=== PATIENT | male | born 1955 | race Caucasian/White ===

== ENCOUNTER 2024-09-16 15:57 | Inpatient (IN) | payer OTHER, SELFPAY ==
[2024-09-16] VITALS (18 sets, daily range): BP systolic 101–139; BP diastolic 62–90; BMI 25.1
[2024-09-16 10:21] LABS: % Basophils 0.8 % (0-2); % Eosinophils 3.1 % (0-6); % Immature Granulocytes 0.3 % (0-0.5); % Lymphocytes 24.5 % (20.5-51.1); % Monocytes 9.2 % (1.7-9.3); % Neutrophils 62.1 % (42.2-75.2); Absolute Basophils 0.1 10^3/uL (0-0.2); Absolute Eosinophils 0.3 10^3/uL (0-0.7); Absolute Lymphocytes 2.5 10^3/uL (1.2-3.4); Absolute Monocytes 0.9 10^3/uL (0.1-0.6); Absolute Neutrophils 6.3 10^3/uL (1.4-6.5); Hematocrit 41.1 % (39.0-52.0); Hemoglobin 13.9 g/dL (13.0-18.0); Mean Corp Hgb Conc. 33.8 g/dL (33.0-37.0); Mean Corpuscular Hgb 30.9 pg (27.0-31.0); Mean Corpuscular Volume 91.3 fL (80.0-94.0); Mean Platelet Volume 9.8 fL (7.4-10.4); Nucleated Red Blood Cells % 0 % (-); Platelet Count 265 10^3/uL (130-400); Red Cell Dist. Width 12.8 % (11.5-14.5); White Blood Cell Count 10.1 10^3/uL (4.8-10.8)
[2024-09-16 10:36] LABS: ALT (SGPT) 19 U/L (0-50); AST (SGOT) 25 U/L (17-59); Albumin 4.2 g/dl (3.5-5.0); Alkaline Phosphatase 59 U/L (38-126); Blood Urea Nitrogen 20 mg/dl (9-20); Calcium 9.1 mg/dl (8.4-10.2); Carbon Dioxide 23 mmol/L (22-30); Chloride 102 mmol/L (98-107); Glucose 151 mg/dl (70-99); Potassium 4.2 mmol/L (3.5-5.1); Sodium 135 mmol/L (135-145); Total Bilirubin 0.7 mg/dl (0.2-1.3); eGFR > 60.00
[2024-09-16 10:46] LABS: Troponin I 0.013 ng/ml
--- NOTE | 2024-09-16 11:04 | ED.GENMED ---
History of Present Illness
General
Chief Complaint: Chest Pain
Source: patient and spouse
Exam Limitations: none
Time Seen by Provider: 09/16/24 11:04
History of Present Illness
History of Present Illness:
68-year-old male. Chest pain started in the middle the night. Unsure if it woke him. Then was able to go back to sleep after 30 minutes. Recurred again in the morning and waxed and waned. Denies shortness of breath. Some minimal radiation to
the left neck. No diaphoresis. No exertional component.
Past History
Past History
ED Past Medical History: None
ED Past Surgical History: None
Social History
Tobacco: Non-smoker
Alcohol: None
Drug: None
Living: with family
Review of Systems
Review of Systems
All Other Systems: Not applicable
Constitutional: Denies fever or chills
Respiratory: Reports no symptoms
ABD/GI: Reports no symptoms
Phy Exam
Physical Exam
Physical Exam:
GENERAL: Alert and oriented in no apparent distress
EYE: Orbits normal.
NECK: Supple, no significant adenopathy.
CARDIAC: Bradycardic and regular no murmur
LUNGS: Clear breath sounds,normal
ABDOMEN: Soft, without focal tenderness or distention
NEUROLOGICAL: Alert and oriented , grossly non-focal
SKIN: Warm and dry, no rash or lesion, no discoloration, skin intact.
MUSCULOSKELETAL: No edema,no deformity.Good color
PSYCH: Normal and appropriate interaction.
Scores
Heart Score for Chest Pain Patients
STEMI patient?: No
History: Moderately Suspicious
ECG: Nonspecific Repolarization
Age: >/= 65 years
Risk Factors: 1 or 2 Risk Factors
Troponin: </= Normal Limit
Heart Score for Chest Pain Patients: 5
Heart Score Risk: 20.3% MACE over next 6 weeks
Course
Orders/Labs/Results
Orders:
Orders
09/16/24 09:54
ECG [Electrocardiogram (*1)] Urgent
Reason for Study: Chest Pain
EKG- Treatment ONCE
09/16/24 Lunch
Cholesterol Lowering
Cholesterol Lowering: Sodium, 2 Gram
09/16/24 10:10
Cardiovascular Evaluation Urgent
Comment: ADD ON
Complete Blood Count/With Diff Urgent
Comprehensive Metabolic Panel Urgent
Troponin I Urgent
09/16/24 11:18
CT Chest Angio W/wo Iv Contras Urgent
Comment:
Reason For Exam: Chest pain to the neck
Cardiac Monitoring- Treatment ONCE
IV Insert/Care/Rem.- Treatment PRN
Pulse Ox/cont/shift [RESP] Stat
Quantity: 1
09/16/24 11:28
EKG- Treatment ONCE
09/16/24 13:00
Electrocardiogram (*1) Stat
Reason for Study: Other
Other Reason for Exam: chest pain
09/16/24 13:06
Troponin I Urgent
09/16/24 13:08
PTT Urgent
Comment: Obtain baseline before beginning heparin infusion if not already collected
Heparin 4,000 units IV NOW STA
Nursing to Place Non Medication Order As Directed
Physician Order: PTT 6 hours after initial start of Heparin infusion
09/16/24 13:15
Fentanyl Citrate/Pf [Sublimaze] 100 mcg .ROUTE .STK-MED ONE
Heparin 90796 Units/250 ml 25,000 units in 250 ml IV PER PROTOCOL
Weight to be used for heparin protocol in kilograms (kg):: 75
Protocol:: Cardiac Tx/Acute Coronary
PTT Goal Range to be used:: PTT 73 to 111 seconds
Order type:: Initial
INITIAL Infusion Dose (UNITS/KG/hr) & then follow protocol:: 12 units/kg/hr
Infusion Dose in UNITS/hr & then follow protocol (UNITS/hr):: 900
INFUSION RATE in mL/hr & then follow protocol (mL/hr):: 9
PTT less than or equal to 64 seconds:: Increase rate by 200 units/hr (+ 2 mL/hr)
PTT 64.1 to 72.9 seconds:: Increase rate by 100 units/hr (+ 1 mL/hr)
PTT 73 to 111 seconds:: Target Range. No change in rate.
PTT 111.1 to 130.9 seconds:: Decrease rate by 100 units/hr (- 1 mL/hr)
PTT 131 to 199.9 seconds:: HOLD for 1 hr. Then decrease rate by 200 units/hr (- 2 mL/hr)
PTT greater than or equal to 200 seconds:: HOLD for 2 hrs & Notify Provider. Then decrease by 200 units/hr (-
2 mL/hr)
Lab follow-up:: Each change, PTT q6h until 2 consecutive are therapeutic. Then PTT
daily.
Midazolam HCl [Versed] 2 mg .ROUTE .STK-MED ONE
Verapamil Injectable [Isoptin/Verapamil Injection] 5 mg .ROUTE .STK-MED ONE
09/16/24 13:16
Heparin 1000 Units/500 ml [Heparin] 1,000 units in 500 ml .ROUTE .STK-MED
Heparin Sodium,Porcine/Ns/Pf [Heparin 2000 Units/1000 ml] 2,000 unit in 1,000 ml .ROUTE .STK-MED
Lidocaine HCl/Pf [Xylocaine-Mpf 1% Vial] 50 mg .ROUTE .STK-MED ONE
Nitroglycerin [Tridil] 1,500 mcg .ROUTE .STK-MED ONE
09/16/24 13:23
Heparin 10,000 units .ROUTE .STK-MED ONE
09/16/24 13:39
Add On- LAB Routine
Tests Added?: lipid profile
09/16/24 14:05
Heparin 10,000 units .ROUTE .STK-MED ONE
09/16/24 14:23
Admit Patient As Directed
Co-Sign Provider:
Level of Care: Inpatient admission
Assign to:: IVU
Physician / Group: dca
Diagnosis: NSTEMI
Reason for Hospitalization: NSTEMI
Expected length of stay greater than two midnights?: Yes
ELOS- Estimated Length of Stay in days: 3
I certify the patient meets the requirements for IP care: Yes
Electrocardiogram (*1) Urgent
Reason for Study: Other
Other Reason for Exam: s/p intervention
Comment: dca
CARDIAC REHAB CONSULT Routine
Co-Sign Provider:
Type of Cardiac Rehab Referral: Outpatient
Diagnosis: NSTEMI
Date of Diagnosis/Surgery: 09/16/24
Referring Provider: Aristeo Sal
VTE Contraindication Routine
VTE Mechanical Device Contraindication: Low Risk- LOS < 2 days
Pharmocologic Contraindication: Low Risk- LOS < 2 days
Risk assessment completed and pt is low risk: Yes
Acetaminophen [Tylenol] 650 mg PO Q4HPRN PRN
Ticagrelor [Brilinta] 180 mg .ROUTE .STK-MED ONE
Activity As Directed
Activity Level: Out of Bed- Chair
Comment: bed/chair rest for 2 hours then out of bed ad jonathan
Account Installation Specialist Procedure As Directed
Cardiac Cath Procedure: percutaneous coronary intervention
Intake/ Output As Directed
Frequency: Per unit guidelines
Notify MD As Directed
Notify physician if: immediately for chest pain or bleeding from access site(s)
Radial Artery Hemostasis Method As Directed
Instructions:: 3 mL out at 2 hour posts placement of band
3 mL out at 2 1/2 hours post placement of band
3 mL out at 3 hours post placement of band
Off at 3 1/2 hours post placement of band
If any oozing or hemotoma occurs:: re-inflate band and call provider
Site Checks As Directed
Check access site for bleeding/hematoma: Yes
Comment: on arrival, Q15min x4, Q30min x2, Q1 hr x2, Q2 hr x2, Q4 hr or per
protocol
Vascular Checks As Directed
Location: distal to access site - pulse check
Frequency: Other
Comment: on arrival, Q15min x4, Q30min x2, Q1 hr x2, Q2 hr x2, Q4 hr or per protocol
Vital Signs As Directed
Frequency: Other
Additional Instructions:: on arrival, Q15min x4, Q30min x2, Q1 hr x2, Q2 hr x2, then Q4 hr or per unit
protocol
PRN Pain Medication Management As Directed
May give lesser potent ordered pain med per pt: Yes
preference::
Protocol:: Medication orders for pain may be administered in a
manner that supports deferring to patient preference
when the pt is:
- Requesting an ordered lesser potent pain medication.
Least to most potent pain medications are defined
as: acetaminophen < NSAID < tramadol < opioids
(morphine, oxycodone, hydromorphone).
- Requesting a lesser dose of the same medication IF
ORDERED.
- Requesting a less intrusive route of administration
if both routes are prescribed by the provider (PO <
IV).
09/16/24 14:27
Case Management Consult ONCE
Case Management Consult: Discharge Planning
Comment: cost brilinta
09/16/24 14:29
Add On- LAB Routine
Tests Added?: hbg a1c
09/16/24 14:30
0.9% Sodium Chloride 1000 ml [Nss] 1,000 ml IV PER PROTOCOL
Infusion rate in mL/kg/hr:: 1.5
Infusion rate in mL/hr:: 113
Duration of infusion (hours):: 5
09/16/24 18:00
Atorvastatin [Lipitor] 40 mg PO QPM
09/16/24 20:00
Ticagrelor [Brilinta] 90 mg PO BID
09/16/24 20:30
Troponin I Q6H
09/17/24 02:30
Troponin I Q6H
09/17/24 06:00
Echo 2D MMode Color/Doppler IN AM
Reason for Study: nstemi
Comment: dca
Electrocardiogram (*1) IN AM
Reason for Study: Other
Other Reason for Exam: s/p intervention
Comment: dca
Basic Metabolic Panel IN AM
Complete Blood Count/No Diff IN AM
09/17/24 08:00
Aspirin Chewable [Low Strength Aspirin] 81 mg PO DAILY
09/17/24 08:30
Troponin I Q6H
09/18/24 06:00
Basic Metabolic Panel IN AM
Complete Blood Count/No Diff IN AM
09/19/24 06:00
Basic Metabolic Panel IN AM
Complete Blood Count/No Diff IN AM
Abnormal Lab Results
09/16/24 09/16/24 09/16/24
10:10 13:06 13:56
RBC 4.50 L 10^6/uL
(4.70-6.10)
Absolute Monos (auto) 0.9 H 10^3/uL
(0.1-0.6)
Glucose 151 H mg/dl
(70-99)
Troponin I 0.054 H* D ng/ml
POC ACT Low Range 256 H Seconds
(116-155)
09/16/24
14:13
RBC
Absolute Monos (auto)
Glucose
Troponin I
POC ACT Low Range 297 H Seconds
(116-155)
09/16/24 10:10
09/16/24 10:10
Vital Signs
Initial and Last Documented VS:
Initial Vital Signs
Temp Pulse Resp BP
97.6 F 49 18 127/75
09/16/24 10:03 09/16/24 10:03 09/16/24 10:03 09/16/24 10:03
Last Documented Vital Signs
Temp Pulse Resp BP Pulse Ox
97.6 F 58 17 139/90 99
09/16/24 10:03 09/16/24 13:00 09/16/24 13:00 09/16/24 13:00 09/16/24 13:00
MDM/Problems Addressed
Differential Diagnosis Includes:
Left relatively concern with waxing and waning symptoms. Referred cardiology.
*Radiology
Radiology exam reviewed: radiology read reviewed (Calcified coronary arteries)
*Pulse Oximetry
Patient hypoxic: no
*EKG
Interpreted by ED Provider?: Yes
Interpretation: abnormal
Comparison EKG: no comparison EKG present
Heart Rate: 47
Rate: bradycardiac
Rhythm: sinus
Imperial: normal axis
Interval: normal interval
QRS Pattern: normal QRS
Ischemia: non-specific ST changes
*Critical Care Note
Total Time (30-74mins, 75-104mins- exclusive of procedures): Not Applicable
ED Attending Note
-
Portions of this chart may have been created with voice recognition software.� Occasional wrong word or��sound alike� substitutions may have occurred due to the inherent limitations of voice recognition software.
Discharge Plan
Departure
Patient Disposition: Admit
Date of Disposition: 09/16/24
Time of Disposition: 13:09
Presentation/result/management discussed w/ accepting MD/DO: cardiology
Discharge Problem:
acute coronary syndrome
Prescriptions:
No Action
No Current Medications
0
Referrals:
UNKNOWN - PT DOES,NOT KNOW [Family Provider] -
Interventions
Interventions:
*Risk Screen - Suicide Last Done: 09/16/24 10:03
*General Assessment Last Done: 09/16/24 10:03
*Neglect/Abuse Screening Last Done: 09/16/24 12:59
*ED COVID-19 Vaccine History Last Done: 09/16/24 10:03
*Nursing Disposition Last Done: 09/16/24 13:39
ED- Cardiac Assessment Last Done: 09/16/24 11:46
Discharge Date and Time
Discharge Date/Time: 09/16/24 13:40
Print Language: YI
--- NOTE | 2024-09-16 13:19 | CON.CAR ---
Consultation
Consultation Request
Date/Time Consultation Requested: 09/16/2024
Date/Time Consultation Performed: 09/16/2024
Requesting Provider: Dr. Wright
Performing Provider: Nayla Viera PA-C for Dr. Tramaine Finn
Reason for Consultation: Chest pain
Medical History
-
History of Present Illness:
Patient is a 68-year-old male with no significant past medical history who presents to emergency department 09/16/2024 with complaints of waxing and waning chest pain. Patient reports he is generally an active individual and was a runner for many
years until he tore his Achilles tendon. He reported he did have chest discomfort in 2016 and underwent stress echo which demonstrated excellent exercise tolerance at 13 METS and no evidence of ischemia. He was skiing yesterday without any current
concerning cardiac symptoms. He awoke around 3 AM on 09/16/2024 with chest pressure/tightness. Symptoms lasted a brief time and he was able to fall back asleep. Upon awakening again around 730 this morning he once again noted some chest
discomfort/pressure that lasted for several minutes then resolved. Around 8 AM chest pain reoccurred and was much more severe in nature and was associated with some left arm discomfort. His called 911 and he was brought in via EMS. He was
provided 4 baby aspirin and route. Pain continued to wax and wane for several hours while in emergency department. Initial EKG showed sinus rhythm with nonspecific ST-T wave abnormality. First troponin was 0.013, repeat pending. He underwent CTA
of chest which was negative for dissection. CT did show moderate coronary calcifications. Patient denies associated shortness of breath, dizziness, lightheadedness, orthopnea, PND, diaphoresis or reflux symptoms. Patient has been pain-free for
approximately 20 minutes.
Past medical history:
None
Past Medical History
Past Surgical History: None
Social History
Tobacco: Non-Smoker
Alcohol: Occasional
Drug: None
Personal:
Living: With Family
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
Family History
Family History: Cancer (Father prostate) and Other (Mother had coronary artery disease, paternal grandmother in her 50s of suspected cardiac event)
Allergies / Home Medications
Allergy/AdvReac Type Severity Reaction Status Date / Time
No Known Allergies Allergy Unverified 09/16/24 10:04
�Medication �Instructions �Recorded �Confirmed �Type
No Meds [No Current Medications] 09/16/24 09/16/24 History
Review of Systems
-
History Source: Patient
All other systems: Negative unless noted
Physical Exam
Vital Signs
Temp Pulse Resp BP Pulse Ox
97.6 F 49 10 129/76 100
09/16/24 10:03 09/16/24 12:28 09/16/24 12:28 09/16/24 12:28 09/16/24 12:28
GEN: No distress, awake, Ox3
HEENT: supple, anicteric, mmm
LUNGS: CTA, no wheezes/rales
CV: Reg, S1/S2, no murmur, rubs or gallops
ABD: soft, BS+, NT/ND
EXT: No edema, clubbing or cyanosis
NEURO: Gross non-focal
SKIN: No rash, warm, dry, pink
Lab Results
09/16/24 10:10
09/16/24 10:10
Troponin I 0.013 ng/ml 09/16/24 10:10
Impression / Plan
-
PCP: Daniel Keating
Dish Network Installer: None prior to admission
Impression:
Presents 09/16/2024 with waxing and waning chest discomfort that awoke him around 3 AM this morning
Moderate coronary calcification noted on CT angiogram
No other significant past medical history
Stress echo 07/07/2016: [facility] protocol 12:00, 13 METS, 104% APMHR, occasional PVCs during study. [address] depression in leads II, 3, aVF, V4 through V6 with resolution within 1 minute of recovery. Rest images preserved ejection fraction EF 55 to
60%. Post exercise imaging no wall motion abnormalities or evidence of myocardial ischemia with a EF of 65 to 70%.
Plan:
-Presents 09/16/2024 with waxing and waning chest discomfort that awoke him around 3 AM this morning.
-Patient was provided aspirin 324 mg in route to hospital via EMS
-EKG sinus rhythm with nonspecific ST-T wave abnormality
-Initial troponin 0.013, repeat pending
-CTA of chest shows moderate coronary calcification with no evidence of dissection
-Given waxing and waning chest discomfort with moderate coronary calcification on CTA discussion with patient and his regarding undergoing cardiac catheterization versus considering outpatient stress testing. Patient would prefer to have a
cardiac catheterization.
-Start heparin drip
-Patient would benefit from daily baby aspirin initiation of statin therapy
-Check lipid profile
Plan discussed with patient, patient's Dr. Wright, ED nursing, interventional cardiology.
HPI 09/16/2024:
Patient is a 68-year-old male with no significant past medical history who presents to emergency department 09/16/2024 with complaints of waxing and waning chest pain. Patient reports he is generally an active individual and was a runner for many
years until he tore his Achilles tendon. He reported he did have chest discomfort in 2016 and underwent stress echo which demonstrated excellent exercise tolerance at 13 METS and no evidence of ischemia. He was skiing yesterday without any current
concerning cardiac symptoms. He awoke around 3 AM on 09/16/2024 with chest pressure/tightness. Symptoms lasted a brief time and he was able to fall back asleep. Upon awakening again around 730 this morning he once again noted some chest
discomfort/pressure that lasted for several minutes then resolved. Around 8 AM chest pain reoccurred and was much more severe in nature and was associated with some left arm discomfort. His called 911 and he was brought in via EMS. He was
provided 4 baby aspirin and route. Pain continued to wax and wane for several hours while in emergency department. Initial EKG showed sinus rhythm with nonspecific ST-T wave abnormality. First troponin was 0.013, repeat pending. He underwent CTA
of chest which was negative for dissection. CT did show moderate coronary calcifications. Patient denies associated shortness of breath, dizziness, lightheadedness, orthopnea, PND, diaphoresis or reflux symptoms. Patient has been pain-free for
approximately 20 minutes.
Data Reviewed
-
EKG: Report Reviewed by me, Discussed with Physician, Discussed with Nurse, Discussed with Patient and Discussed with Family
CT Scan: Report Reviewed by me, Discussed with Physician, Discussed with Nurse and Discussed with Family
Labs: Labs Reviewed by me, Discussed with Physician, Discussed with Nurse, Discussed with Patient and Discussed with Family
Old Records: Reviewed
--- NOTE | 2024-09-16 13:19 | EDRN ---
Report to pathology laboratory aides teacher.
--- NOTE | 2024-09-16 13:30 | W.PN.UPDATE ---
Update Note
Progress Note Update
Patient seen and examined in the emergency department.
Full note to follow from DARVIN Viera
Fairly active gentleman who has been cutting back on exercise for the last few months. He was skiing yesterday and felt unwell towards the end of skiing. Went home and had acute onset substernal chest pressure approximately 4 AM which has been
waxing and waning at times pain-free and at times it 4 out of 10 substernal chest pressure most recently pain-free approximately 1 hour ago. Troponin 0.[address]-T T changes inferolaterally with relative resting bradycardia which is
asymptomatic. Prior stress testing in 2016 with 13 METS and no ischemia. CT angiography was performed in the emergency department which demonstrated moderate coronary artery calcifications and no evidence for pulmonary embolus or aortic
dissection. He received chewable 324 mg aspirin from [facility] and we started heparin drip without bolus in the emergency department after discussion with Dr. Wright.
Discussed treatment options with patient and for relatively fearful of his new onset symptoms and discussed either cardiac catheterization for unstable angina which they are amenable to or outpatient ischemic evaluation with either coronary
catheterization or ischemic evaluation noninvasively. He and his are amenable to left heart catheterization I described 1000 risk of [place] stroke and a 1% risk of vascular or coronary injury. I discussed the care with Dr. Sal to his
available to perform cardiac catheterization at this time.
[2024-09-16 13:47] LABS: Troponin I 0.054 ng/ml
[2024-09-16 14:05] LABS: ACT-LR - POC 256 Seconds (116-155)
[2024-09-16 14:19] LABS: ACT-LR - POC 297 Seconds (116-155)
[2024-09-16 15:11] LABS: ACT-LR - POC 276 Seconds (116-155)
[2024-09-16 15:17] LABS: HDL Cholesterol 54 mg/dl; LDL Cholesterol, Calculated 156 mg/dl; Total Cholesterol 225 mg/dl (50-199); Triglyceride 79 mg/dl (10-149); Very Low Density Lipoprotein 15 mg/dl (0-30)
--- NOTE | 2024-09-16 15:33 | CM ---
Pricing on Brilinta 90 mg BID is $47 for a 30 day supply and $94 for a 90 day mail order supply. Brilinta is in stock at the patient's [facility]
--- NOTE | 2024-09-16 15:41 | ITS.CL.CATH ---
[facility] - Catheterization
Cardiac Catheterization
Procedure Report:
LEFT HEART CATH AND CORONARY INTERVENTION
Date of Procedure: September 16, 2024
Referring: Dr. Tramaine Finn
PROCEDURES:
1. Left heart catheterization with coronary and single-plane left ventriculography
2. Successful crossing of chronically occluded right coronary artery and successful stenting of the mid right coronary artery with a 3.5 x 38 mm Plymouth stent that was implanted at nominal pressures and postdilated with a 3.5 mm noncompliant balloon
3. Unsuccessful attempted PCI of the LAD with eccentric calcified plaque in the mid LAD.
INDICATION: Unstable angina
ACCESS: Right radial artery, 6 Finnish sheath
HEMODYNAMICS (mmHg):
AO (s/d, m) : 109/61, 81
LV (s/d) : 101/10
LVEDP : 21
CORONARY FINDINGS
Dominance: Right
LEFT MAIN: Normal
LEFT ANTERIOR DESCENDING: The LAD arises normally from the left main and runs in the anterior interventricular groove. The LAD is moderately calcified has a calcified and very eccentric 95% stenosis with HALIMA-3 flow into the distal vessel.
CIRCUMFLEX: The circumflex is a medium caliber nondominant vessel with minor irregularities over its course. The circumflex gives rise to several small to medium caliber obtuse marginal branches.
RIGHT CORONARY: The right coronary artery is 100% occluded in its midportion just beyond an RV marginal branch. The distal vessel fills via [id number] collaterals
VENTRICULOGRAPHY: Left ventriculography was performed in an EVERETT projection. The digital single-plane left ventricular ejection fraction is visually estimated at 50% with posterior basal and diaphragmatic inferior hypokinesis. Mild anterolateral
hypokinesis is also noted
ANGIOPLASTY PROCEDURE DETAIL: Upon review of the diagnostic catheterization films the decision was made to attempt percutaneous revascularization of the 100% occluded mid RCA. The distal inferior wall and inferior apical canchola moved normally and it
was felt that an unsuccessful attempted PCI of the RCA may change the treatment algorithm from percutaneous treatment to surgical revascularization with bypass surgery and grafting of the LAD and RCA.
Intravenous heparin was administered. A Brilinta loading dose was not given until we successfully crossed the chronically occluded segment in the mid RCA. The origin of the RCA was cannulated with a 6 Finnish JR4 guiding catheter which provided
little backup support. The JR4 was removed and exchanged for a 6 Fr hockey-stick guide catheter. A BMW guidewire was advanced to the occluded segment and would not cross. A microcatheter was advanced to the BMW tip which still would not cross the
chronically occluded segment. At this point the JR4 guide catheter was removed and exchanged for the 6 Finnish hockey-stick guide catheter which provided better support. The BMW guidewire was readvanced to the mid RCA and a microcatheter was again
utilized to provide backup support. A GuideLiner was also advanced to the mid RCA. With some persistence and a little luck the chronically occluded segment was crossed and the BMW guidewire was advanced into the distal vessel. Balloon predilation
was performed using a 2.0 mm Euphora balloon. I attempted to cross the stenotic segment with a 3.5 mm stent, however, the stent would not cross even with GuideLiner position of the mid RCA to provide additional backup support. The stent was
removed. The mid RCA was redilated with a 2.5 mm noncompliant balloon to high pressures. The guide liner was advanced over the balloon and into the more mid-distal portion of the vessel. At this point, a 3.5 x 38 mm Chandan stent was able to cross
the residual stenosis in the RCA. The guide liner was withdrawn and the stent was retracted and positioned with angiographic and fluoroscopic guidance. The stent was deployed at nominal pressures and postdilated to high pressures with a 3.5 mm
noncompliant balloon. The final angiographic result was excellent
The patient had been on the procedural table for an extended period of time. I discussed staging the procedure or attempting to cross the mid LAD stenosis for percutaneous revascularization of the LAD. He favored proceeding with attempted
percutaneous revascularization of the LAD. The origin of the left main was cannulated with a 6 Finnish XB 3.5 guiding catheter and a BMW guidewire was advanced to the subtotal occlusion in the mid LAD but would not cross even with balloon backup
support. The BMW guidewire was removed and exchanged for a Fielder XT wire which crossed the stenotic segment in the mid LAD with a great degree of difficulty. Unfortunately, the wire was pulled into the proximal LAD and the lesion could not be
recross. At this point the patient remained chest pain-free with HALIMA-3 flow into the distal vessel. We elected to terminate the procedure and to have the patient return at a time where CT surgical backup was immediately available if flow in the
LAD became significantly compromised.
RADIATION SUMMARY: Fluoro Time (min): 42.7, Dose (mGy): 1573, DAP (Gy.cm2) : 145.7
CONCLUSIONS
1. Complex but successful stenting of chronically occluded mid RCA with placement of a 3.5 x 38 mm Plymouth stent that was implanted at nominal pressures and postdilated with a 3.5 mm noncompliant balloon
2. Unsuccessful attempted PCI of calcified and eccentric stenosis in the mid LAD with planned return to the [facility] for a repeat attempt at crossing the LAD with CT surgical backup
3. Preserved LV systolic function with posterior basal and diaphragmatic inferior hypokinesis.
RECOMMENDATIONS
1. Uninterrupted dual antiplatelet therapy
2. Patient is currently chest pain-free. Restart heparin plus minus IV nitroglycerin for recurring anginal symptoms
3. Angiograms will be reviewed with CT surgery with planned return to the catheterization laboratory and attempted crossing of the high-grade mid LAD stenosis on 09/18
4. Guideline directed medical therapy
Copy to: Dr. Tramaine Finn
--- NOTE | 2024-09-16 16:21 | CM ---
Chart reviewed. Patient is independent of ADLS, lives with his in a [address], [place], [facility] [place]. Plan is for the patient to return home. CM to follow
[2024-09-16] MEDS: NSS 1000 IV (16:54)
--- NOTE | 2024-09-16 17:51 | PTCARENOTE ---
Assumed care of pt upon tsf from [facility] post PCI. Pt arrives awake and alert, Ox3. VSS, CM shows NSR, POX 99% on RA. Right radial band intact with 8cc's, movement restrictions reviewed. Pt denies any pain or discomfort.
[2024-09-16] MEDS: LIPITOR PO (17:58)
[2024-09-16] MEDS: BRILINTA 90 MG PO (20:25)
[2024-09-17] VITALS (7 sets, daily range): BP systolic 84–111; BP diastolic 61–79
[2024-09-17 03:55] LABS: Hemoglobin 12.3 g/dL (13.0-18.0); Mean Corp Hgb Conc. 35.1 g/dL (33.0-37.0); Mean Corpuscular Hgb 31.5 pg (27.0-31.0); Mean Corpuscular Volume 89.5 fL (80.0-94.0); Mean Platelet Volume 10.2 fL (7.4-10.4); Platelet Count 235 10^3/uL (130-400); Red Blood Cell Count 3.91 10^6/uL (4.70-6.10); Red Cell Dist. Width 12.8 % (11.5-14.5); White Blood Cell Count 11.9 10^3/uL (4.8-10.8)
[2024-09-17 04:19] LABS: Blood Urea Nitrogen 17 mg/dl (9-20); Calcium 8.3 mg/dl (8.4-10.2); Carbon Dioxide 23 mmol/L (22-30); Chloride 104 mmol/L (98-107); Estimated Creatinine Clearance 84 ml/min; Glucose 111 mg/dl (70-99); Potassium 3.9 mmol/L (3.5-5.1); Sodium 133 mmol/L (135-145); eGFR > 60.00
[2024-09-17] MEDS: BRILINTA 90 MG PO ×2 (08:18→19:26)
[2024-09-17] MEDS: LOW STRENGTH ASPIRIN 81 MG PO (08:18)
[2024-09-17] MEDS: KCL 20 MEQ PO (08:18)
[2024-09-17] MEDS: TOPROL XL 12.5 MG PO (08:18)
[2024-09-17 10:23] LABS: Glycohemoglobin (HgbA1c) 5.6 % (4.0-5.6)
--- NOTE | 2024-09-17 11:22 | W.PN.CARDCBS ---
Today's Communication / Plan
-
DAPT, statin, beta-crissy
ELECTRICAL [employer]OR after midnight pending intervention 09/18/2024
Echocardiogram
Monitor on telemetry
Impression / Plan
-
PCP: Daniel Keating
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 Finn initially
Impression:
Presents 09/16/2024 with waxing and waning chest discomfort that awoke him around 3 AM this morning
Moderate coronary calcification noted on CT angiogram
Two-vessel CAD status post PCI to RCA, staged PCI to LAD on 09/18/2024
No other significant past medical history
Stress echo 07/07/2016: [facility] protocol 12:00, 13 METS, 104% APMHR, occasional PVCs during study. [address] depression in leads II, 3, aVF, V4 through V6 with resolution within 1 minute of recovery. Rest images preserved ejection fraction EF 55 to
60%. Post exercise imaging no wall motion abnormalities or evidence of myocardial ischemia with a EF of 65 to 70%.
Plan:
-Presents 09/16/2024 with waxing and waning chest discomfort that awoke him around 3 AM this morning.
-Patient was provided aspirin 324 mg in route to hospital via EMS
-EKG sinus rhythm with nonspecific ST-T wave abnormality
-Initial troponin 0.013, peak at 13, downtrending
-CTA of chest shows moderate coronary calcification with no evidence of dissection
-Given waxing and waning chest discomfort with moderate coronary calcification on CTA discussion with patient and his regarding undergoing cardiac catheterization versus considering outpatient stress testing. Patient would prefer to have a
cardiac catheterization.
-Uninterrupted DAPT, high intensity statin therapy
� N.p.o. after midnight
� Repeat echocardiogram
Plan discussed with patient, Dr Sal
HPI 09/16/2024:
Patient is a 68-year-old male with no significant past medical history who presents to emergency department 09/16/2024 with complaints of waxing and waning chest pain. Patient reports he is generally an active individual and was a runner for many
years until he tore his Achilles tendon. He reported he did have chest discomfort in 2016 and underwent stress echo which demonstrated excellent exercise tolerance at 13 METS and no evidence of ischemia. He was skiing yesterday without any current
concerning cardiac symptoms. He awoke around 3 AM on 09/16/2024 with chest pressure/tightness. Symptoms lasted a brief time and he was able to fall back asleep. Upon awakening again around 730 this morning he once again noted some chest
discomfort/pressure that lasted for several minutes then resolved. Around 8 AM chest pain reoccurred and was much more severe in nature and was associated with some left arm discomfort. His called 911 and he was brought in via EMS. He was
provided 4 baby aspirin and route. Pain continued to wax and wane for several hours while in emergency department. Initial EKG showed sinus rhythm with nonspecific ST-T wave abnormality. First troponin was 0.013, repeat pending. He underwent CTA
of chest which was negative for dissection. CT did show moderate coronary calcifications. Patient denies associated shortness of breath, dizziness, lightheadedness, orthopnea, PND, diaphoresis or reflux symptoms. Patient has been pain-free for
approximately 20 minutes.
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
Subjective
Date of Service: September 17, 2024
Patient seen and examined this morning. No acute events overnight. Patient resting comfortably denying any chest pain, shortness of breath, palpitations, lightheadedness, dizziness, near-syncope, syncope, or weakness. Telemetry demonstrated sinus
rhythm with occasional PVC.
Objective
Labs:
09/17/24 03:19
09/17/24 03:19
Labs
Hgb 12.3 g/dL (13.0-18.0) L 09/17/24 03:19
Hct 35.0 % (39.0-52.0) L 09/17/24 03:19
Plt Count 235 10^3/uL (130-400) 09/17/24 03:19
APTT Cancelled 09/16/24 13:08
Sodium 133 mmol/L (135-145) L 09/17/24 03:19
Potassium 3.9 mmol/L (3.5-5.1) 09/17/24 03:19
BUN 17 mg/dl (9-20) 09/17/24 03:19
Creatinine 0.8 mg/dL (0.7-1.3) 09/17/24 03:19
Glucose 111 mg/dl (70-99) H 09/17/24 03:19
Troponins
09/16/24 09/16/24 09/16/24
10:10 13:06 20:39
Troponin I 0.013 0.054 H* D 7.050 H* D
09/17/24 09/17/24
03:19 09:37
Troponin I 13.200 H* D 9.520 H* D
Vital Signs and I&O:
Vital Signs
Temp Pulse Resp BP Pulse Ox
97.5 F 59 18 98/63 98
09/17/24 07:29 09/17/24 10:00 09/17/24 07:29 09/17/24 07:31 09/17/24 07:29
Vital Signs
Temp Pulse Resp BP Pulse Ox
97.5 F 59 18 98/63 98
09/17/24 07:29 09/17/24 10:00 09/17/24 07:29 09/17/24 07:31 09/17/24 07:29
Intake & Output
09/15/24 09/16/24 09/17/24 09/18/24
06:59 06:59 06:59 06:59
Intake Total 480 / 480
Balance 480 / 480
Physical Exam
Physical Exam
GEN: No distress, awake, Ox3
HEENT: supple, anicteric, mmm
LUNGS: CTA, no wheezes/rales
CV: Reg, S1/S2, no murmur, rubs or gallops
ABD: soft, BS+, NT/ND
EXT: No edema, clubbing or cyanosis
NEURO: Gross non-focal
SKIN: No rash, warm, dry, pink
[2024-09-17] MEDS: LIPITOR PO (18:47)
[2024-09-18] VITALS (12 sets, daily range): BP systolic 92–136; BP diastolic 45–93
--- NOTE | 2024-09-18 03:40 | PTCARENOTE ---
Pt awake,alert no c/o cp. Aware of npo status after mn for cath in am. Sinus on telemetry.
[2024-09-18 05:02] LABS: Hematocrit 38.2 % (39.0-52.0); Hemoglobin 12.8 g/dL (13.0-18.0); Mean Corp Hgb Conc. 33.5 g/dL (33.0-37.0); Mean Corpuscular Hgb 30.6 pg (27.0-31.0); Mean Corpuscular Volume 91.4 fL (80.0-94.0); Mean Platelet Volume 10.3 fL (7.4-10.4); Platelet Count 244 10^3/uL (130-400); Red Blood Cell Count 4.18 10^6/uL (4.70-6.10); Red Cell Dist. Width 12.9 % (11.5-14.5); White Blood Cell Count 8.2 10^3/uL (4.8-10.8)
[2024-09-18 05:30] LABS: Blood Urea Nitrogen 13 mg/dl (9-20); Calcium 8.7 mg/dl (8.4-10.2); Carbon Dioxide 23 mmol/L (22-30); Chloride 107 mmol/L (98-107); Estimated Creatinine Clearance 75 ml/min; Glucose 105 mg/dl (70-99); Potassium 4.3 mmol/L (3.5-5.1); Sodium 137 mmol/L (135-145); eGFR > 60.00
[2024-09-18] MEDS: LOW STRENGTH ASPIRIN 81 MG PO (07:25)
[2024-09-18] MEDS: BRILINTA 90 MG PO ×2 (07:25→19:53)
[2024-09-18] MEDS: TOPROL XL 12.5 MG PO (07:25)
[2024-09-18 07:40] LABS: ACT-LR - POC 384 Seconds (116-155)
[2024-09-18 12:02] LABS: ACT-LR - POC > 397 Seconds (116-155)
[2024-09-18 14:05] LABS: ACT-LR - POC 273 Seconds (116-155)
[2024-09-18 14:39] LABS: ACT-LR - POC 281 Seconds (116-155)
[2024-09-18 14:40] LABS: ACT-LR - POC > 397 Seconds (116-155)
--- NOTE | 2024-09-18 15:10 | PTCARENOTE ---
Pt received this am with no c/o of any chest pain or sob. Right radial site WNL and IRENE. Pt sent to the laborer car barn and returned at 1510. Pt alert and oriented with no c/o. Right radial with TR band intact with good radial pulse.
[2024-09-18] MEDS: NSS 1000 IV (15:15)
--- NOTE | 2024-09-18 16:23 | ITS.CL.CATH ---
[employer] [facility] - Catheterization
Cardiac Catheterization
Procedure Report:
ANGIOPLASTY REPORT
Date of Procedure: September 18, 2024
Referring: Dr. Aristeo Sal
INDICATIONS: Staged coronary intervention after opening chronically occluded RCA. Attempted crossing of the stenotic segment on 09/12/2022 was unsuccessful and he presents now for second attempt to cross high-grade and eccentric calcified mid LAD
stenosis.
PROCEDURES:
1. Successful stenting of the mid LAD with a 2.75 x 30 mm Chandan stent that was implanted at nominal pressures and postdilated with a 3 mm noncompliant balloon
ACCESS: Right radial artery, 6 Maltese sheath
ANGIOPLASTY REPORT: Arterial access was obtained in the right radial artery with placement of a 6 Maltese sheath. Intravenous heparin was administered and the ACT was monitored throughout the procedure and maintained within therapeutic limits. The
origin of the left main was cannulated with a 6 Maltese EBU 3.5 guiding catheter and a BMW guidewire was advanced to the eccentric stenotic segment in the mid LAD. With little patience and persistence we are maria r and crossing the very eccentric mid
LAD stenosis and the tip of the wire was advanced into the distal vessel. Balloon predilation was performed with a 2.0 mm trek balloon. I attempted to cross the stenotic segment using a 2.75 x 30 mm Chandan stent. The stent would not cross. A
GuideLiner was then obtained and advanced to the proximal LAD. A 2.5 x 20 mm noncompliant balloon was advanced over the guidewire and the mid LAD was redilated with a 2.5 mm noncompliant balloon. The 2.75 x 30 mm [place] stent was then advanced over
the guidewire. The guide liner was retracted to the proximal vessel. The stent was positioned with angiographic and fluoroscopic guidance then implanted in the mid LAD at nominal pressures and postdilated with a 3.0 mm noncompliant balloon to 16
dariela distally and 20 dariela in the proximal to midportion of the stent with a nice angiographic result
COMPLICATIONS: None
RADIATION SUMMARY: Fluoro Time (min): 11.9, Dose (mGy): 561.5, DAP (Gy.cm2) : 38.0
CONCLUSION
1. Successful stenting of the mid LAD with a 2.75 x 30 mm [place] stent that was postdilated to high pressures with a 3.0 mm noncompliant balloon with a nice angiographic result
RECOMMENDATIONS
1. Patient will can likely be discharged later this afternoon
2. Continue uninterrupted dual antiplatelet therapy
3. Follow-up will be arranged in our office in several weeks
4. High intensity lipid-lowering
Copy to: Dr. Tramaine Finn
[2024-09-18] MEDS: LIPITOR 80 MG PO (17:16)
--- NOTE | 2024-09-18 17:51 | W.PN.UPDATE ---
Update Note
Progress Note Update
68 yo WM s/p staged PCI LAD (same day). He has mild 1/10 stretch pain, not worse with activity, EKG SB no new ST changes, R rad site c/d/i with TR band in place. He will continue DAPT ASA/Brilinta. He will continue atorvastatin reviewed that goal
LDL <55. He will continue metoprolol 12.5mg and explained reason for this as he does not have HTN. Cardiac rehab c/s. Activity restrictions reviewed. He will f/u [facility] [employer] in 2 weeks. He is for d/c home after 8pm if rad site stable and chest discomfort
is resolved.
--- NOTE | 2024-09-18 17:59 | W.DS.TRANS ---
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
-
Discharge Instructions:
Discharge Diagnosis/Procedures NSTEMI, Angioplasty with stent to RCA (09/16),
Angioplasty with stent to LAD (09/18)
Diet Low Cholesterol
Driving Restrictions No driving for 24 hours
Other Services Cardiac Rehab
Instructions:
Stand-Alone Forms: DC Instructions- Cath/EP Lab
Changes to Home Medications: Yes
Discharge Medications:
DC Medications w/original date entered in [facility]
aspirin 81 mg chewable tablet 81 mg PO DAILY #1 tab 09/18/24
atorvastatin 80 mg tablet 80 mg PO QPM #90 tabs 09/18/24
metoprolol succinate 25 mg tablet,extended release 24 hr 12.5 mg (1/2 x 25 mg) PO DAILY #90 tabs 09/18/24
ticagrelor 90 mg tablet (Brilinta) 90 mg PO BID #60 tabs 09/18/24
Home Medication Changes
new to all meds
Pending Results: No
--- NOTE | 2024-09-18 20:26 | PTCARENOTE ---
Received patient at change of shift. SR on the monitor, HR in the 60s, VSS. Discharge instructions previously reviewed with dayshift nurse. No questions regarding discharge instructions from patient or family. R radial band removed at shift change
with dayshift nurse. Dressing applied, CDI. No complaints from pt at this time. Removed pt from monitor and removed IV. Pt dressed in clothes from home. Pt discharged home with with staff escort in wheel chair. Pt left with belongings from room
and educational packets.
== END 2024-09-18 20:10 | disposition home or self-care (01) | DRG 322 ==
LOC: IVU 15:57
PROVIDERS: Emergency Medicine; Nurse Practitioner Adult Health; ADMITTING PHYSICIAN Internal Medicine Interventional Cardiology; EMERGENCY PHYSICIAN Emergency Medicine
PROC: B2111ZZ Fluoroscopy of Multiple Coronary Arteries using Low Osmolar Contrast (ICD-10-PCS; 2024-09-16)
PROC: 4A023N7 Measurement of Cardiac Sampling and Pressure, Left Heart, Percutaneous Approach (ICD-10-PCS; 2024-09-16)
PROC: 027034Z Dilation of Coronary Artery, One Artery with Drug-eluting Intraluminal Device, Percutaneous Approach (ICD-10-PCS; 2024-09-16)
PROC: B2151ZZ Fluoroscopy of Left Heart using Low Osmolar Contrast (ICD-10-PCS; 2024-09-16)
DX: I21.4 Non-ST elevation (NSTEMI) myocardial infarction (principal); I25.10 Atherosclerotic heart disease of native coronary artery without angina pectoris; E78.5 Hyperlipidemia, unspecified; I08.1 Rheumatic disorders of both mitral and tricuspid valves; Z82.49 Family history of ischemic heart disease and other diseases of the circulatory system
CPT/HCPCS: 71275; 80048; 80053; 80061; 83036; 84484; 85025; 85027; 85347; 93005; 93306; 93458; 99285; C1725; C1769; C1874; C1887; C1894; C9600; C9607; Q9967

== ENCOUNTER 2024-10-24 08:57 | Outpatient (RCR) | payer OTHER, SELFPAY | END 2024-10-24 23:59 | disposition home or self-care (01) | LOC: CRHB 08:57 | PROVIDERS: ATTENDING PHYSICIAN Internal Medicine Interventional Cardiology; FAMILY PHYSICIAN Family Medicine | DX: I25.2 Old myocardial infarction (principal); I25.10 Atherosclerotic heart disease of native coronary artery without angina pectoris; Z95.5 Presence of coronary angioplasty implant and graft | CPT/HCPCS: G0422; G0423 ==

== ENCOUNTER 2024-11-19 09:52 | Outpatient (RCR) | payer OTHER, SELFPAY | END 2024-11-19 23:59 | disposition home or self-care (01) | LOC: CRHB 09:52 | PROVIDERS: ATTENDING PHYSICIAN Internal Medicine Interventional Cardiology; FAMILY PHYSICIAN Family Medicine | DX: I21.4 Non-ST elevation (NSTEMI) myocardial infarction (principal); I25.2 Old myocardial infarction (principal); I25.10 Atherosclerotic heart disease of native coronary artery without angina pectoris; Z95.5 Presence of coronary angioplasty implant and graft | CPT/HCPCS: G0422; G0423 ==

== ENCOUNTER 2024-12-22 16:18 | Outpatient (RCR) | payer OTHER, SELFPAY | END 2024-12-22 23:59 | disposition home or self-care (01) | LOC: CRHB 16:18 | PROVIDERS: ATTENDING PHYSICIAN Internal Medicine Interventional Cardiology; FAMILY PHYSICIAN Family Medicine | DX: I25.2 Old myocardial infarction (principal); I21.4 Non-ST elevation (NSTEMI) myocardial infarction (principal); I25.10 Atherosclerotic heart disease of native coronary artery without angina pectoris; Z95.5 Presence of coronary angioplasty implant and graft | CPT/HCPCS: G0422; G0423 ==

== ENCOUNTER 2025-01-09 11:33 | Outpatient (RCR) | payer OTHER, SELFPAY ==
[2025-01-05 11:00] LABS: HDL Cholesterol 69 mg/dl; LDL Cholesterol, Calculated 91 mg/dl; Total Cholesterol 174 mg/dl (50-199); Triglyceride 72 mg/dl (10-149); Very Low Density Lipoprotein 14 mg/dl (0-30)
== END 2025-01-09 23:59 | disposition home or self-care (01) ==
LOC: CRHB 11:33
PROVIDERS: ATTENDING PHYSICIAN Internal Medicine Interventional Cardiology; FAMILY PHYSICIAN Family Medicine
DX: I21.4 Non-ST elevation (NSTEMI) myocardial infarction (principal); I25.10 Atherosclerotic heart disease of native coronary artery without angina pectoris; Z95.5 Presence of coronary angioplasty implant and graft; I25.2 Old myocardial infarction
CPT/HCPCS: 80061; G0422; G0423

== ENCOUNTER → 2025-06-08 14:08 | Outpatient (REF) | payer OTHER, SELFPAY | LOC: RAD 14:08 | PROVIDERS: ATTENDING PHYSICIAN Nurse Practitioner Family | DX: M25.552 Pain in left hip (principal); M54.50 Low back pain, unspecified | CPT/HCPCS: 72110; 73502 ==